=== PATIENT | male | born 1965 | race Caucasian/White ===

== ENCOUNTER 2018-01-24 19:04 | Inpatient (IN) | payer MEDICAID, OTHER ==
--- NOTE | 2018-01-24 19:38 | EDPHY ---
General - History Smoking Status: Never smoked Time Seen by Provider: 01/24/18 19:29 Narrative: CHIEF COMPLAINT: Suicidal, depressed HISTORY OF PRESENT ILLNESS: Patient presents by private vehicle with complaints of depression and feeling suicidal. He describes history of depression with recent admission to [facility], discharged home 10 days ago on Effexor. He states that the affected has made the symptoms worse over the past few days. He complains of increasing thoughts of self-harm with plans of overdosing on his current medications. He denies having access to weapons or thoughts of self inflicted gunshot wounds or stab wounds. He says that he has no current psychiatric support here. He recently moved from [place] for work. He denies any substance abuse. No other associated complaints or modifying factors PSYCHIATRIC DIAGNOSES: Depression, anxiety PRIOR PSYCHIATRIC EVALUATIONS: [facility] discharged 10 days ago M1/DETAINER: Detained by me at 7:30 p.m. Today REVIEW OF SYSTEMS: Ten systems reviewed and are negative unless otherwise noted in the HPI EXAMINATION General Appearance: Alert, no distress Head: normocephalic, atraumatic Eyes: Pupils equal and round, no conjunctival pallor or injection ENT, Mouth: Mucous membranes moist Neck: Normal inspection, supple, non-tender Respiratory: Lungs are clear to auscultation Cardiovascular: Regular rate and rhythm Gastrointestinal: Abdomen is soft and nontender Back: non-tender, no bony abnormalities Neurological: GCS 15. A&O, nonfocal, normal gait Skin: Warm and dry, no rash Extremities: Nontender, no pedal edema Psychiatric: Depressed mood and flat affect. Admits to suicidal ideation with plans of overdosing on his medications. DIFFERENTIAL DIAGNOSES: Including but not limited to depression, anxiety, anergy MDM: 7:30 p.m. Increasing depression with reports of suicidal ideation over the past weeks. He was recently treated at [facility] for this, discharged home 10 days ago. He states that his Effexor is not working and symptoms are worse. He does express intent to harm self discharge home and cannot contract for safety. I placed him on a detainer and we will proceed with medical clearance and evaluation. 8:30 p.m. Patient has been cleared for evaluation. 9:45 p.m. Patient currently be evaluated 10:20 p.m. Notified by RN accepted to [address] [place] [address] for inpatient care[address] Accepting physician Dr. Mabry. EMTALA form will be completed. He is asking for his nighttime medications, which I have ordered. 10:30 p.m. EMTALA completed by Dr. Law. He is awaiting transport by EMS. SUPERVISION: Patient was independently examined, but I discussed the case with my secondary supervising physician Dr. Law (Binh Tao) The patient was evaluated and managed by the physician visitor information assistant. I have reviewed this chart and I agree with the findings and plan of care as documented , as indicated by my signature. I am the secondary supervising physician. ( Marva Law) - Objective Vital Signs: Initial Vital Signs Temperature (C) 37.5 C 01/24/18 19:11 Heart Rate 77 01/24/18 19:11 Respiratory Rate 18 01/24/18 19:11 Blood Pressure 133/89 H 01/24/18 19:11 O2 Sat (%) 97 01/24/18 19:11 O2 Delivery Mode Room Air Allergies/Adverse Reactions: No Known Allergies Allergy (Unverified 01/24/18 19:15) Home Medications: Medication Instructions Recorded Aspirin [Aspirin 325 mg (*)] 325 mg PO DAILY 01/24/18 Clopidogrel Bisulfate [Plavix (*)] 75 mg PO DAILY 01/24/18 Isosorbide Mononitrate [Imdur 30 60 mg PO DAILY 01/24/18 mg (*)] Metoprolol Succinate Xr [Toprol Xl 25 mg PO DAILY 01/24/18 25 mg (*)] Nitroglycerin [Nitrostat 0.4 mg 0.4 mg SL Q5M PRN 01/24/18 (*)] oxyCODONE HCL [Oxycontin] 10 mg PO TID 01/24/18 Atorvastatin Calcium [Lipitor 20 20 mg PO HS 01/25/18 mg (*)] Multivitamins [Multivitamin (*)] 1 each PO DAILY 01/25/18 Ranolazine [RANEXA 500mg (RX)] 500 mg PO BID 01/25/18 Laboratory Results: Laboratory Results 01/24/18 19:30 01/24/18 19:30 Medications Given: Aspirin Buffered (Aspirin Ec) 325 mg PO DAILY [facility] Stop: 07/24/18 08:59 Last Admin: 01/25/18 09:13 Dose: 325 mg Clopidogrel Bisulfate (Plavix) 75 mg PO DAILY [facility] Stop: 07/24/18 08:59 Last Admin: 01/25/18 09:13 Dose: 75 mg Oxycodone HCl (Oxycontin) 10 mg PO TID [facility] Stop: 02/04/18 08:59 Last Admin: 01/25/18 09:13 Dose: 10 mg Discontinued Medications Atorvastatin Calcium (Lipitor) 20 mg PO EDNOW ONE Stop: 01/24/18 22:19 Last Admin: 01/24/18 22:59 Dose: 20 mg Lorazepam (Ativan) 0.5 - 1 mg PO Q6HRS PRN PRN Reason: Anxiety, Able to Take PO Stop: 07/24/18 01:06 Last Admin: 01/25/18 02:07 Dose: 1 mg Oxycodone HCl (Oxycontin) 40 mg PO Q12H [facility] Stop: 02/04/18 00:59 Last Admin: 01/25/18 02:16 Dose: Not Given Oxycodone HCl (Oxycontin) 10 mg PO ONCE ONE Stop: 01/25/18 01:37 Last Admin: 01/25/18 02:07 Dose: 10 mg Oxycodone/Acetaminophen (Percocet 5/325) 1 tab PO EDNOW ONE Stop: 01/24/18 22:21 Last Admin: 01/24/18 22:59 Dose: 1 tab Ranolazine (Ranexa) 500 mg PO EDNOW ONE Stop: 01/24/18 22:31 Last Admin: 01/24/18 22:59 Dose: 500 mg Venlafaxine HCl (Effexor Xr) 150 mg PO DAILY [facility] Stop: 07/24/18 08:59 Last Admin: 01/25/18 09:15 Dose: 150 mg Departure - Departure Disposition: [facility] IP Clinical Impression: Suicidal ideation, Severe major depression Condition: Fair
[2018-01-24 20:09] LABS: PLATELET COUNT 208 10^3/uL (150-400)
[2018-01-24] MEDS ORDERED: ATORVASTATIN CALCIUM 20 MG TAB PO ONE (22:18)
[2018-01-24] MEDS ORDERED: OXYCODONE/APAP 5/325 TAB PO ONE (22:20)
[2018-01-24] MEDS ORDERED: RANOLAZINE 500 MG TAB.ER PO ONE (22:30)
[2018-01-24] MEDS ORDERED: RANOLAZINE 500 MG TAB.ER PO SCH (22:30)
--- NOTE | 2018-01-24 23:01 | ASMTTLCEVL ---
TLC Evaluation - Basic Information Evaluation Start Date and 01/24/2018 09:00 PM Time Hospital Status Answers: M1 Hold 72-hr M1 Hold Start Date 01/24/2018 10:20 AM and Time Patient statement Notes: I got a hx of depression and I have been feeling suicidal. Narrative Notes: Pt is a 52 year old male who recently moved here from [place] for work. Pt was discharged from [facility] 10 days ago on Effexor and he reports his depression symptoms have gotten worse. Pt stated he was on Wellbutrin before but had to be taken off due to heart problems. Pt stated Wellbutrin did work well for him. Pt stated he has felt suicidal for the past few days and today was real bad. Pt reported he has a plan to overdose on his medications. Pt reports feeling hopeless and stated, Im so sorry to come back here but I just dont feel safe. Im tired of feeling depressed. Every night I go to sleep and hope I dont wake up. Diagnosis History Notes: Pt reports a hx of depression that started after his heart surgery in 2006. Pt stated prior to 2006, he never had depression. Prior suicide attempts Notes: Pt reported 2 prior suicide attempts both by overdose on medications in 2009 and in 2011. Prior hospitalizations Notes: Pt reports 3 prior hospitalizations, 2 in [place] and recently at [facility]. Treatment Responses Notes: Pt reported he felt his hospitalizations in [place] were helpful. History of violence Notes: Pt denied wanting to harm others. Therapist: Pt has not established outpatient providers here yet. Psychiatrist: Pt has not established outpatient providers here yet. Medications (name, dosage, route, freq uency) Notes: Renexa, Lipitor, Effexor 150 mg; Percocet 10 mg Allergies/Reaction Notes: NKa Sleep Notes: Pt reports his sleep is poor. Appetite Notes: Pt reports his sleep is poor. Medical/Surgical history Notes: Pt reports he has High cholesterol, and afib. Substance use history (frequency, intensity, his tory, duration) Notes: Pt denied and etoh use. Pt reports he uses marijuana occasionally. Utox was positive or THC. Bal was.0 Family composition Notes: Pt reports his parents are . He has one sister in [place] who he says he has not spoken to in a long time. Family psychiatric/substance abuse history Notes: Pt denied any family psychiatric/substance use hx. Developmental history Notes: Pt stated he was born and raised in [place] and reported having a good childhood. Pt denied ADD/ADHD dx hx. Abuse concerns Answers: None Marital status/children Notes: Pt is , no children. Living situation Notes: Pt states he is living in [place]. Sexual history/orientation Notes: Heterosexual Peer support/family strengths Notes: Pt reported he just moved here and has a limited support system. Education level/history Notes: Pt reported he graduated from high school. Work history Notes: Pt reported he works in [employer]. Notes: Pt reported he served in [employer] from [id number]. Legal Notes: Pt denied any legal problems. Cheondoism/Spiritual Notes: None reported. Leisure Notes: Pt stated he used to like reading but has not enjoyed doing that for a while. Collateral Notes: None Patient's strengths Answers: Honest (Please select at least TWO strengths): Willingness TLC Evaluation - Mental Status Exam Appearance: Answers: Appropriate Eye Contact: Answers: Intermittent Mood: Answers: Sad Affect: Answers: Calm Flat Silly Tearful Behavior: Answers: Cooperative Speech: Answers: Relevant Logical Clear Thought Process: Answers: Organized Oriented Alert Insight: Answers: Good Judgement: Answers: Good Depression Answers: Difficulty Concentrating Signs/Symptoms: Diminished Interest Diminished Pleasure Flat Affect Hopelessness Sad Mood Hallucinations: Answers: None Pt reported to be making Answers: Yes suicidal/self-injuring threats? Pt reported to have Answers: No aggression/assault ideation/behavior? Pt reported to be making Answers: No aggression/assault threats? Pt exhibits inability to Answers: No care for self/grave disability? Ideation/behavior is Answers: Yes chronic? Patient has a specific Answers: Yes plan? Pt has access to means to Answers: Yes execute the plan? Ideation involves Answers: Yes serious/lethal intent? Ideation has Answers: No delusional/hallucinatory content? History of Answers: Yes suicidal/self-injuring ideation, behavior, or threats? History of Answers: No aggressive/assaultive ideation, behavior, or threats? History of serious Answers: No physical harm to self/others while in treatment setting? TLC Evaluation - Suicide/Homicide Risk Suicide Risk Factors: Answers: < 20 or > 40 Years of Age Flat Affect Hopelessness Inadequate Social Support Major Depression Prior Suicide Attempt(s) Homicide/violence risk Answers: None factors: Current Suicidal Answers: Yes Ideation? Current Suicide Ideation Pt reports having SI every day for past few days Frequency: with plan. Current Suicidal Ideation Answers: Yes in the Past 48 Hours? Current Suicidal Ideation Answers: Yes in the Past Month? Current Suicidal Answers: No Ideation, Worst Ever? Suicide Internal Answers: Absence of Psychosis Protective Factors: Suicide External Answers: None Protective Factors: Ranking of patient's Answers: Severe suicidal risk: Ranking of patient's Answers: Low homicidal risk: TLC Evaluation - Wrap-up AXIS I Diagnosis (include DSM-V and ICD-10 codes), must also be entered in [employer], which is the source of truth. Notes: Major Depressive Disorder, recurrent, severe 296.33 (F33.2) In consultation with [facility] ED physician, Marva Law MD and on-call psychiatrist, Loan Mabry MD, both concurred that pt appears to meet 27-65 criteria requiring psychiatric hospitalization as pt appears to be at risk of harm to self due to a mental illness condition. Pt was given the 3[facility] prohibited belongings list while in the ED. Evaluation End Date and 01/24/2018 11:00 PM Time (HH:MIGUEL): Date Signed: 01/24/2018 11:00 PM Electronically Signed By:Radha Pacheco
--- NOTE | 2018-01-24 23:01 | ASMTTCLDSP ---
TLC Discharge Disposition Disposition: Answers: Admit Discharge Concerns/Recommendations: Notes: In consultation with [facility] ED physician, Marva Law MD and on-call psychiatrist, Loan Mabry MD, both concurred that pt appears to meet 27-65 criteria requiring psychiatric hospitalization as pt appears to be at risk of harm to self due to a mental illness condition. Pt was given the 3N prohibited belongings list while in the ED. Was patient given the Answers: Yes Inpatient Behavioral Health Prohibited Belongings List while in the ED? For inpatient Loan Mabry MD admission, the following psychiatrist agreed to accept patient for admission to Behavioral Health ([facility]): Date Signed: 01/24/2018 11:01 PM Electronically Signed By:Radha Pacheco
[2018-01-25] MEDS ORDERED: OLANZapine DISINTEGR 5 MG TAB PO PRN (01:07)
[2018-01-25] MEDS ORDERED: MAG HYDROX/AL HYDROX/SIMETH 30 ML UDCUP PO PRN (01:07)
[2018-01-25] MEDS ORDERED: LORazepam 0.5 MG TAB PO PRN (01:07)
[2018-01-25] MEDS ORDERED: MAGNESIUM HYDROXIDE 30 ML UDCUP PO PRN (01:07)
[2018-01-25] MEDS ORDERED: ACETAMINOPHEN 325 MG TAB PO PRN (01:07)
[2018-01-25] MEDS ORDERED: NICOTINE POLACRILEX 2 MG GUM B PRN (01:07)
[2018-01-25] MEDS ORDERED: NITROGLYCERIN 0.4 MG BTL SL PRN (01:28)
--- NOTE | 2018-01-25 08:49 | ASMTBHMTP ---
Master Treatment Plan Master Treatment Plan Answers: Depressed Mood with for: Suicidal Ideation Date: 01/24/2018 Diagnosis on Admission: Major Depressive Disorder, Recurrent, Severe 296.33 (33.20) Expected length of stay: 3-5 days Reason for admission: Notes: Per Report: Pt is a 52 year old male who recently moved here from [place] for work. Pt was discharged from [facility] 10 days ago on Effexor and he reports his depression symptoms have gotten worse. Pt stated he was on Wellbutrin before but had to be taken off due to heart problems. Pt stated Wellbutrin did work well for him. Pt stated he has felt suicidal for the past few days and today was real bad. Pt reported he has a plan to overdose on his medications. Pt reports feeling hopeless and stated, Im so sorry to come back here but I just dont feel safe. Im tired of feeling depressed. Every night I go to sleep and hope I dont wake up. Patient's stated presenting problems: Notes: "I am here for Depression and Suicidal Ideation. Patient's goals for treatment: Notes: "to get stable, and maybe try ECT [place]." Patient's strengths: Notes: "I can't think of any." Identify supports outside of hospital: Notes: Not really Discharge criteria: Notes: Suicidal Ideaiton will resolve and patient will have a plan to safely manage recurrent suicidal ideation. Initial disposition plan/considerations: Notes: To return to work for a bit and move back to [place] Master Treatment Plan Required Signatures Psychiatrist signature: Answers: JACQUELYN Baxter: RN on-shift signature: Answers: RN: Patient signature: Answers: Patient: Date Signed: 01/25/2018 08:48 AM Electronically Signed By:Shant Shha
[2018-01-25] MEDS ORDERED: VENLAFAXINE XR 150 MG CAP PO SCH (09:00)
[2018-01-25] MEDS: ASPIRIN EC 325 MG TAB PO SCH (09:13)
[2018-01-25] MEDS: CLOPIDOGREL BISULFATE 75 MG TAB PO SCH (09:13)
--- NOTE | 2018-01-25 13:29 | BCON ---
INTERNAL MEDICINE CONSULTATION DATE OF CONSULTATION: 01/25/2018 REFERRING PHYSICIAN: Loan Mabry MD REASON FOR REFERRAL: Medical clearance for inpatient behavioral health stay. HISTORY OF PRESENT ILLNESS: This patient came to the emergency department yesterday complaining of depression and feeling suicidal. He did not feel that he could be safe at home. He was evaluated by the mental health team and admitted for further psychiatric care. He is currently without any acute medical complaints. PAST MEDICAL HISTORY: 1. Coronary artery disease. 2. Chronic angina. 3. Osteomyelitis of the right foot. 4. Hypertension. 5. Dyslipidemia. 6. Chronic anemia. 7. Depression. PAST SURGICAL HISTORY: He has had multiple coronary artery stentings and angioplasties. He had coronary artery bypass graft surgery in 2008. MEDICATIONS: Prior to admission: 1. Ranolazine 500 mg p.o. b.i.d. 2. Multivitamin daily. 3. Atorvastatin 20 mg p.o. q.h.s. 4. Nitroglycerin 0.4 mg sublingual q.5 minutes p.r.n. 5. Metoprolol succinate XR 25 mg p.o. daily. 6. Isosorbide mononitrate 60 mg p.o. daily. 7. Aspirin 325 mg p.o. daily. 8. Oxycodone 10 mg p.o. t.i.d. 9. Clopidogrel 75 mg p.o. daily. ALLERGIES: There are no known drug allergies. SOCIAL HISTORY: He is . He moved to [place] for a job. He is a nonsmoker and nondrinker. He reports he is intending to return to [place]. FAMILY HISTORY: Noncontributory. REVIEW OF SYSTEMS: He denies weight change, fevers, chills, sweats, cough, dyspnea, chest pain, palpitations, nausea, vomiting, constipation, diarrhea, and otherwise, a 10-point review of systems is negative. PHYSICAL EXAM: VITAL SIGNS: Blood pressure is 123/73. Heart rate is 67. Respiratory rate is 16. Oxygen saturation is 95% on room air. Temperature is 37 degrees centigrade. His weight is 92.9 kg, for a body mass index of 27.8. GENERAL: This is an overweight man, appears older than his chronologic age, cooperative, and in no acute distress. HEENT: Extraocular movements are intact. Pupils are equal, round, reactive to light. Mucous membranes are moist. Dentition is in good condition. NECK: Supple. HEART: There is a regular rate and rhythm, with no murmurs, rubs, or gallops. Heart sounds are mildly distant. LUNGS: Clear to auscultation bilaterally. ABDOMEN: Benign. EXTREMITIES: There is no cyanosis, clubbing, or edema. Radial and dorsalis pedis pulses are 2+ bilaterally. NEUROLOGIC: He is alert and oriented x3. Cranial nerves 2-12 are grossly intact. There is no focal weakness. Sensation is intact to light touch. Gait is somewhat wide-based, with pes planus and slow , with a step through pattern and reduced arm swing. LABORATORY STUDIES: From yesterday, CBC revealed mild anemia with hemoglobin of 11.7 and hematocrit of 35.2. He had a normal MCV. Serum chemistry revealed normal renal function and electrolytes. Hemoglobin A1c was normal at 5.6. Lipid panel reflected excellent control of dyslipidemia, with a total cholesterol of 104, LDL of 48, and an HDL of 35. TSH was normal at 0.689. Toxicology screen in the serum was negative for ethyl alcohol and in the urine was non-negative for marijuana. ASSESSMENT/RECOMMENDATIONS: 1. Mental health issues pending further evaluation and management per Psychiatry and the mental health team. 2. Anemia. He reports this is chronic. It is mild. There is no indication for any further evaluation at this time. 3. Coronary artery disease. Has been treated with angioplasty and multiple stenting, as well as a bypass. 4. Chronic angina, on appropriate medications to control, including ranolazine , isosorbide mononitrate, and metoprolol. 5. Hypertension, is well controlled. 6. Dyslipidemia, is well controlled. 7. Chronic foot pain. He reports that he will get a bone graft due to bony erosion that happened because of his osteomyelitis in the past, but first he must complete his year of clopidogrel, which will be completed in several months since his prior angioplasty. I see no medical contraindications to this patient's continued stay on the inpatient behavioral health unit, or to any psychiatric medications or procedures. Thank you very much for including me in the care of this patient and please do not hesitate to contact me or the hospitalist service should there be need for further medical evaluation. /[id number]/MODL MTDD
--- NOTE | 2018-01-25 14:34 | BAPA ---
DATE OF SERVICE: 01/25/2018 CHIEF COMPLAINT: "Can't get it straightened out, depression, don't want to live." HISTORY OF PRESENT ILLNESS: From the ED note dated 01/24/18, patient presented to the ED by private vehicle with complaints of depression and feeling suicidal. Patient describes history of depression with recent admission at [facility], discharged home 10 days ago on Effexor. Patient reported increasing thoughts of self-harm with plans of overdosing on his current medications. Patient was admitted involuntarily on an M1 hold due to being a danger to himself and is hospitalized for safety, crisis stabilization, and medication evaluation. Patient describes to this MANAGER [employer]PPORT SERVICES current circumstances that led to this hospitalization as a long history of depression, reports depression started after he had open-heart surgery in 2006, and patient reports worsening depression over the last few months. Patient states to this [employer] current alcohol and/or substance abuse that contributed to current hospitalization as none. Patient describes to this [employer]NA[employer] current psychiatric symptoms as depression symptoms including depressed mood most of the day nearly every day, diminished interest or pleasure in almost all activities that he typically enjoys, poor appetite, poor sleep, reporting sometimes difficulty falling asleep, sometimes sleeping too much, fatigue, low energy nearly every day, feelings of worthlessness and excessive guilt, inability to concentrate nearly every day, indecisiveness nearly every day, and suicidal ideation. Patient describes to this [employer] abuse history as none. 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 Patient reports he does attend to day-to-day responsibilities and chores around the hotel room that he is staying in. Patient reports working without difficulty. Patient reports he has not been socializing much. Reports he does not get along with his family. He is not close to his sister. Patient reports hobbies as reading and watching movies, and patient states he is currently not satisfied with his . Patient reports current suicidal ideation with a plan to overdose on medications. Patient reports no protective factors or reasons to live. Patient is unable to describe any future goals or plans. Patient reports his main support network as a cousin. Patient denies current homicidal ideation and denies current self-injurious ideation. Patient reports his medications are currently managed by his primary care provider, and states he is currently not established with a therapist. PAST PSYCHIATRIC HISTORY: The patient describes to this [employer] the following psychiatric history: Patient reports past diagnosis of depression and reports past psychotropic medication trials as Prozac, Zoloft, Cymbalta, Lexapro, Wellbutrin, trazodone, Remeron, Seroquel, and Abilify. Patient reports he currently sees his primary care provider for his medications. Patient describes a history of inpatient psychiatric hospitalizations as was recently discharged from [facility] on Tuesday and reports he "left too soon." Patient reports he was also at [facility] for a couple days about 2 weeks ago. Patient denies history of withdrawal from drugs or alcohol. Patient reports a history of 3 suicide attempts, reports an attempt in 2008 by overdose on Seroquel and also by overdose in 2011 and 2014. Patient denies history of self- injurious behavior. ALLERGIES: No known allergies. CURRENT MEDICATIONS: At time of admission, patient was taking Effexor XR 150 mg p.o. daily. Patient was prescribed oxycodone 10 mg p.o. t.i.d. for a taper, nitroglycerin 0.4 mg sl q.5 m p.r.n., Plavix 75 mg p.o. daily, Lipitor 20 mg p.o. q.h.s., aspirin EC 325 mg p.o. daily. PAST MEDICAL HISTORY: The patient describes to this [employer]NAGER [employer] the following: Patient reports no neurological history. Reports major illness as heart condition and reports hospitalizations for heart surgeries. SOCIAL HISTORY: The patient describes to this MANAGER [employer] the following social history: Patient reports he was born in [place] and raised the majority of his life in [place] by his grandmother. Patient reports he currently lives in an extended stay hotel in [place] for work. Patient reports he met all his developmental milestones, reports no learning delays or difficulties. Patient describes his sexual orientation as heterosexual. States he is currently not in a relationship,. Has been twice and twice. The patient reports he has no children. Describes his occupation as in the [employer] business. Reports highest level of education is high school. Reports he was in the and served in the [employer] from 1982 to 1987. Patient describes his zoroastrianism or spiritual practice as Jewish. Reports no history of legal charges. SUBSTANCE USE HISTORY: Patient reports he does not drink alcohol. Uses marijuana 3-4 times per week, and denies all other substance use history. SUBSTANCE ABUSE BRIEF INTERVENTION: Brief intervention regarding the risks of cannabis abuse is provided to patient with goal to reduce the risk of harm that could result from the continued use of cannabis, with the general aim to investigate the problem, raise awareness of problem, develop a solution with the patient, recommend a specific change or activity, and motivate the patient toward change. Assess substance abuse behavior and give supportive advice about harm reduction, recommend a reduction in hazardous/at-risk consumption patterns, and facilitate referrals for additional specialized treatment with lawn caretaker. Intermediate goal is for the patient to quit and engage in substance abuse treatment. Intervention focus on intermediate goals to allow for more immediate success in the treatment process to keep the patient motivated. Review following with patient: Cannabis use risks: Short-term use: impaired short-term memory, impaired motor coordination, altered judgement, in high doses paranoia and psychosis. Long-term use addiction, diminished life satisfaction and achievement, symptoms of chronic bronchitis, and increased risk of chronic psychosis disorders if predisposition to such disorders. In withdrawal anger, aggression irritability, anxiety and nervousness, decreased appetite or weight loss, restlessness, and sleep difficulties with strange dreams. FAMILY PSYCHIATRIC HISTORY: The patient describes to this MANAGER [employer] the following family psychiatric history: Patient reports no family history of mental illness. No family history of suicide or suicide attempts. The patient describes family history of substance use as his father abused alcohol. ADMISSION LABS AND STUDIES: CBC from 01/24/18, within normal limits except red blood cells were low at 4.10, hemoglobin was low at 11.7, hematocrit was low at 35.2, neutrophils were elevated at 75.9, lymphocytes were low at 14.5, basophils were low at 0.2, absolute lymphocytes were low at 0.83, and absolute basophils were low at 0.01. Chemistry: BNP from 01/24/18, within normal limits. Hemoglobin A1c from 01/25/18, within normal limits. Fasting lipid panel from 01/25/18, within normal limits except cholesterol was low at 104, LDL cholesterol calculated was low at 48, non-HDL cholesterol was low at 69, and HDL cholesterol was low at 35. TSH from 01/25/18, was within normal limits. Toxicology screen from 01/24/18, was negative for THC, negative for all other substances tested, and negative for ethyl alcohol. MENTAL STATUS EXAM: The patient is a well-nourished male looking stated chronological age. Attire is appropriate. Dress is casual. Grooming status is appropriate. Ambulation is independent. Gait is normal and coordinated. Posture is normal and relaxed. Eye contact is appropriate and adequate. Motor activity is appropriate with purposeful, organized, coordinated movements with no involuntary movements noted. Attitude is cooperative and friendly. Patient appears attentive and relates well to this interviewer. Language production is spontaneous. Rate is fluent. Latency of response is adequate with sad tone, normal volume and amount is appropriate. Articulation is clear. Patient reports mood as depressed with constricted, flat and congruent affect. Patient' s thought process is linear and logical with no loose associations, tangential thought, thought blocking, concrete thinking, or any other signs of formal thought disorder. The patient does report suicidal thoughts with a plan to overdose. Patient denies homicidal thoughts, ideas, or plans. Patient denies auditory or visual hallucinations. Patient denies delusions. Patient does not appear to be attending to internal stimuli. Patient is oriented to person, place, time, and situation. The patient's attention and concentration are adequate. The patient's insight and judgment are poor. There is no evidence of gross cognitive dysfunction at any point during the interview, and no evidence of apparent dysfunction in recent or remote memory noted. DIAGNOSES: 1. Based on the patient's history and current presentation, his diagnosis is major depressive disorder, recurrent, severe. 2. Cannabis use disorder, mild. 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 Patient requires continued inpatient care because of current depression and current suicidal ideation with plan to overdose. Patient presents with problems of increased depression that have steadily been increasing over the past several months. Patient's life has been affected by these problems, including suicidal ideation with plan. The onset and exacerbation of symptoms at this time are unknown. Patient reports a long history of depression with numerous trials of antidepressants with little to no benefit for his depression symptoms. Patient is at a high suicide safety risk due to current depression and current suicidal ideation with plan to overdose. Protective factors while hospitalized include ongoing safety checks, active involvement in treatment, and support from our treatment team. Patient could benefit from inpatient hospitalization for safety , crisis stabilization, and medication evaluation. PLAN: (1) Psychotropic medications: After reviewing options, risks and benefits, patient agrees to taper with objective to discontinue Effexor. Taper will begin by lowering dose from 150 mg to 75 mg p.o. daily and this is Effexor XR. Patient agrees to a trial of Wellbutrin with starting dose of Wellbutrin XL 150 mg p.o. daily to start on , 01/26/18. Patient reports he has been on Wellbutrin in the past with good benefit and reports he tolerated this medication in the past. No other medication changes at this time as more time is needed to determine ongoing tolerability and efficacy. Plan is to continue to observe patient for response and side effects from medications, and ongoing monitoring and evaluation. (2) Review with patient informed consent and recommendations for psychotropic medication treatment listed below (3) Labs: no additional labs at this time (4) Therapy: continue milieu and group therapy (5) Further investigation including gathering information from patients relatives and review of past case records to inform treatment plan. (6) Safety/Wellness plan and follow-up outpatient appointments to be established prior to discharge. Next steps are for patient to meet with customer care team coach to plan a safe discharge plan and establish outpatient services for ongoing treatment. (7) Confer with inpatient treatment team regarding treatment plan. (8) Legal status: M1 hold (9) Consider discharge on Tuesday if patient is in stable condition, safe, and has a safe discharge plan. (10) Substance abuse intervention: cannabis ESTIMATED LENGTH OF STAY: 3-5 days PSYCHOTROPIC MEDICATION TREATMENT INFORMED CONSENT and RECOMMENDATIONS: Review nature of condition, diagnosis, and prognosis. Review nature and purpose of psychotropic medication treatment. Review type of psychotropic medications being ordered. Review risk and benefits of psychotropic medication treatment. Review probable length of time will need to take medications. Review risk and benefits of not undergoing psychotropic medication treatment. Review alternative treatments to psychotropic medications. Review psychotropic medications contraindications, drug-drug interactions, side effects, and importance of reporting any side effects to a psychiatric provider or nurse during inpatient hospitalization, and upon discharge to patients psychiatric outpatient provider, primary care provider, or other health health care / medical job titles. Review importance of asking a nurse, psychiatric provider, or primary care provider any questions or problems concerning the psychotropic medications. Verify patient understands the information that has been provided, and understands, accepts, and agrees to psychotropic medications. Review patients safety plan and importance of patient to communicate to staff while hospitalized if patient is ever a danger to self/others, or unable to care for self, and upon discharge, the importance for patient to contact [facility] or [facility], or go to the nearest emergency room, if patient is ever a danger to self/others, or unable to care for self. Recommend that upon discharge patient establish medication management treatment with a psychiatric provider, establishes routine therapy appointments, and follow-up with primary care provider. Verify patient understands and agrees to these recommendations. /[id number]/MODL MTDD
--- NOTE | 2018-01-25 16:13 | PDMN ---
Medical Necessity Medical necessity: Pt meets IP criteria per & SHUN B-[id number]; est los >2 mn for eval/tx of major depressive disorder; pt on M1 hold due to risk of harm to self; admit for further monitoring, safety, crisis stabilization & med management; per H&P & order 01/25/18
[2018-01-25] MEDS: ATORVASTATIN CALCIUM 20 MG TAB PO SCH (21:28)
[2018-01-26] MEDS: buPROPion XL 150 MG TAB PO SCH (08:15)
[2018-01-26] MEDS: ASPIRIN EC 325 MG TAB PO SCH (08:15)
[2018-01-26] MEDS: CLOPIDOGREL BISULFATE 75 MG TAB PO SCH (08:16)
[2018-01-26] MEDS: VENLAFAXINE XR 75 MG CAP PO SCH (08:17)
--- NOTE | 2018-01-26 08:22 | SOAPPROG ---
SOAP Progress Note Assessment/Plan: Assessment: Major Depressive Disorder, Severe. Cannabis Use Disorder, mild. No improvement noted. (see subjective/objective note). Patient is not safe to discharge at this time as patient continues to express and exhibit depression symptoms, and reports plan to overdose on Plavix medications. Patient requires continued inpatient care because of current depression and suicidal ideation with plan, and requires inpatient level of care to stabilize in order to no longer be a danger to himself. Patient could benefit from continued inpatient hospitalization for crisis stabilization, safety, and medication evaluation. Patient could benefit from observation for efficacy and toleration of trial of antidepressant. Plan: (1) Psychotropic medications: After reviewing options, risks, and benefits patient agrees to continue current medications. No medication changes at this time as more time is needed to determine ongoing tolerability and efficacy. Plan is to continue to observe patient for response and side effects from medications, and ongoing monitoring and evaluation. Consider tapering oxycodone to discontinue. (2) Review with patient informed consent and recommendations for psychotropic medication treatment listed below (3) Labs: no additional labs at this time (4) Therapy: continue milieu and group therapy (5) Further investigation including gathering information from patients relatives and review of past case records to inform treatment plan. (6) Safety/Wellness plan and follow-up outpatient appointments to be established prior to discharge. Next steps are for patient to meet with urgent care physician assistant to plan a safe discharge plan and establish outpatient services for ongoing treatment. (7) Confer with inpatient treatment team regarding treatment plan. (8) Legal status: M1, to sign-in voluntarily when M1 expires (9) Consider discharge next week if patient is in stable condition, safe, and has a safe discharge plan. (10) Substance abuse intervention: cannabis PSYCHOTROPIC MEDICATION TREATMENT INFORMED CONSENT and RECOMMENDATIONS: Review nature of condition, diagnosis, and prognosis. Review nature and purpose of psychotropic medication treatment. Review type of psychotropic medications being ordered. Review risk and benefits of psychotropic medication treatment. Review probable length of time patient will need to take medications. Review risk and benefits of not undergoing psychotropic medication treatment. Review alternative treatments to psychotropic medications. Review psychotropic medications contraindications, drug-drug interactions, side effects, and importance of reporting any side effects to a psychiatric provider or nurse during inpatient hospitalization, and upon discharge to patients psychiatric outpatient provider, primary care provider, or other health progressive care nurse. Review importance of asking a nurse, psychiatric provider, or primary care provider any questions or problems concerning the psychotropic medications. Verify patient understands the information that has been provided, and understands, accepts, and agrees to psychotropic medications. Review patients safety plan and importance of patient to report to staff while hospitalized if patient is ever a danger to self/others, or unable to care for self, and upon discharge, the importance for patient to contact [facility] or [facility], or go to the nearest emergency room, if patient is ever a danger to self/others, or unable to care for self. Recommend that upon discharge patient establish medication management treatment with a psychiatric provider, establishes routine therapy appointments, and follow-up with primary care provider. Verify patient understands and agrees to these recommendations. 01/26/18 08:21 Subjective: Following up with patient for evaluation of depression, anxiety, and safety. Patient reports, "No better, still feeling severely depressed, and having thoughts of suicide. My plan is to overdose on my Plavix." Patient expresses the following psychiatric symptoms severe depression. Patient reports taking medications as prescribed, and describes response to medications as poor. Patient does not report undesirable side effects from the medications, and agrees to continue current medications. Patient reports appetite as good, and reports eating all meals. Patient describes getting 8 hours of sleep. Patient expresses willingness to taper and discontinue Oxycodone. Patient agrees to continue Effexor XR taper and trial of Wellbutrin XL 150 mg po QD. Objective: Vital Signs Temp Pulse Resp BP Pulse Ox 36.9 C 67 16 134/79 H 96 01/26/18 00:30 01/26/18 00:30 01/26/18 00:30 01/26/18 00:30 01/26/18 00:30 NURSING REPORT: Consulted with nursing for update on patients progress in treatment. Nurses report patient is engaged in treatment, is attending groups, slept 9 hours, expresses the following psychiatric symptoms: severe depression, exhibits the following psychiatric symptoms: flat affect, depressed; is eating all meals, is agreeable to medications and taking as prescribed with no report of side effects, with no s/s of EPS/akathisia, and denies SI/HI, denies A/V hallucinations, and denies delusions. MSE: The patient presents casually dressed and with good hygiene, and looks stated age. Patient is sitting, posture is upright, and position is relaxed. Patient appears awake, alert, and responds appropriately and reasonably during interview. Patient is engaged, relates well to interviewer, and emotional facial expression is appropriate to situation and changes appropriately with topic. Patient is cooperative, makes comfortable eye contact, and movements are voluntary, deliberate, coordinated, and smooth and even with no inappropriate movements. Patient makes laryngeal sounds effortlessly and shares conversation appropriately; pace of conversation is appropriate, and stream of talking is fluent; articulation is clear and understandable; word choice is effortless and appropriate for education level; completes sentences, occasionally pausing to think; rate and volume are appropriate for interview and setting. Patient reports mood as severely depressed. Patients affect is flat, congruent with mood, and appropriate to speech and circumstances. Patient has linear and logical thinking, with no loose associations, tangential thought, thought blocking, concrete thinking, or any other signs of formal thought disorder. Patient reports suicidal ideation with plan to overdose, and denies homicidal ideation, and denies hallucinations and delusions. Patient appears to be a poor historian with poor judgement and poor insight into current condition. Patient has no apparent dysfunction in recent or remote memory noted, and no evidence of gross cognitive dysfunction noted at any point during the interview. SUBSTANCE ABUSE BRIEF INTERVENTION: Brief intervention regarding the risks of cannabis abuse is provided to patient with goal to reduce the risk of harm that could result from the continued use of cannabis, with the general aim to investigate the problem, raise awareness of problem, develop a solution with the patient, recommend a specific change or activity, and motivate the patient toward change. Assess substance abuse behavior and give supportive advice about harm reduction, recommend a reduction in hazardous/at-risk consumption patterns, and facilitate referrals for additional specialized treatment with date night caregiver. Intermediate goal is for the patient to quit and engage in substance abuse treatment. Intervention focus on intermediate goals to allow for more immediate success in the treatment process to keep the patient motivated. Review following with patient: Cannabis use risks: Short-term use: impaired short-term memory, impaired motor coordination, altered judgement, in high doses paranoia and psychosis. Long-term use addiction, diminished life satisfaction and achievement, symptoms of chronic bronchitis, and increased risk of chronic psychosis disorders if predisposition to such disorders. In withdrawal anger, aggression irritability, anxiety and nervousness, decreased appetite or weight loss, restlessness, and sleep difficulties with strange dreams. - Time Spent With Patient Time Spent With Patient: 15 minutes, met with patient individually. - Pending Discharge Pending Discharge Within 24 Hours: No Pending Discharge Within 48 Hours: No ICD10 Worksheet Patient Problems: Problems Problem Status Onset Severe major depression Acute Suicidal ideation Acute
[2018-01-26] MEDS ORDERED: LORazepam 1 MG TAB PO PRN (08:50)
[2018-01-26] MEDS ORDERED: LOPERAMIDE HCL 2 MG CAP PO PRN (08:50)
[2018-01-26] MEDS ORDERED: PROMETHAZINE HCL 25 MG SUPPR PR PRN (08:50)
[2018-01-26] MEDS ORDERED: PROMETHAZINE HCL 25 MG TAB PO PRN (08:50)
[2018-01-26] MEDS ORDERED: VENLAFAXINE XR 150 MG CAP PO SCH (09:00)
[2018-01-26] MEDS: ATORVASTATIN CALCIUM 20 MG TAB PO SCH (19:20)
[2018-01-27] MEDS: VENLAFAXINE XR 75 MG CAP PO SCH (08:05)
[2018-01-27] MEDS: CLOPIDOGREL BISULFATE 75 MG TAB PO SCH (08:05)
[2018-01-27] MEDS: buPROPion XL 150 MG TAB PO SCH (08:05)
[2018-01-27] MEDS: ASPIRIN EC 325 MG TAB PO SCH (08:08)
--- NOTE | 2018-01-27 08:09 | SOAPPROG ---
SOAP Progress Note Assessment/Plan: Assessment: Major Depressive Disorder, Severe. Cannabis Use Disorder, mild. Slight improvement noted. (see subjective/objective note). Patient is not safe to discharge at this time as patient continues to express and exhibit depression symptoms, and reports plan to overdose on Plavix medications. Patient requires continued inpatient care because of current depression and suicidal ideation, and requires inpatient level of care to stabilize in order to no longer be a danger to himself. Patient could benefit from continued inpatient hospitalization for crisis stabilization, safety, and medication evaluation. Patient could benefit from observation for efficacy and toleration of trial of antidepressant, medication change, and opiate withdrawal. Patient has been hospitalized several times recently, and could benefit from continued hospitalization to ensure stabilization and safe discharge plan to reduce likelihood of decompensation and rehospitalization. Plan: (1) Psychotropic medications: After reviewing options, risks, and benefits patient agrees to continue current medications, and agrees to lower Oxycodone to 10 mg po QD with discontinuing after this AM dose. No medication changes at this time as more time is needed to determine ongoing tolerability and efficacy. Plan is to continue to observe patient for response and side effects from medications, and ongoing monitoring and evaluation. Continue opiate withdrawal protocol for close observation during Oxycodone taper for safety. (2) Review with patient informed consent and recommendations for psychotropic medication treatment listed below (3) Labs: no additional labs at this time (4) Therapy: continue milieu and group therapy (5) Further investigation including gathering information from patients relatives and review of past case records to inform treatment plan. (6) Safety/Wellness plan and follow-up outpatient appointments to be established prior to discharge. Next steps are for patient to meet with health care liaison to plan a safe discharge plan and establish outpatient services for ongoing treatment. (7) Confer with inpatient treatment team regarding treatment plan. (8) Legal status: voluntary (9) Consider discharge Tuesday if patient is in stable condition, safe, and has a safe discharge plan. (10) Substance abuse intervention: cannabis PSYCHOTROPIC MEDICATION TREATMENT INFORMED CONSENT and RECOMMENDATIONS: Review nature of condition, diagnosis, and prognosis. Review nature and purpose of psychotropic medication treatment. Review type of psychotropic medications being ordered. Review risk and benefits of psychotropic medication treatment. Review probable length of time patient will need to take medications. Review risk and benefits of not undergoing psychotropic medication treatment. Review alternative treatments to psychotropic medications. Review psychotropic medications contraindications, drug-drug interactions, side effects, and importance of reporting any side effects to a psychiatric provider or nurse during inpatient hospitalization, and upon discharge to patients psychiatric outpatient provider, primary care provider, or other health chronic care nurse. Review importance of asking a nurse, psychiatric provider, or primary care provider any questions or problems concerning the psychotropic medications. Verify patient understands the information that has been provided, and understands, accepts, and agrees to psychotropic medications. Review patients safety plan and importance of patient to report to staff while hospitalized if patient is ever a danger to self/others, or unable to care for self, and upon discharge, the importance for patient to contact [facility] or [facility], or go to the nearest emergency room, if patient is ever a danger to self/others, or unable to care for self. Recommend that upon discharge patient establish medication management treatment with a psychiatric provider, establishes routine therapy appointments, and follow-up with primary care provider. Verify patient understands and agrees to these recommendations. 01/27/18 08:09 Subjective: Following up with patient for evaluation of depression, anxiety, and safety. Patient reports, "Feeling better, not having any withdrawal symptoms. Can we go faster on taking me off the pain med? I would like to be off of it before discharging. I am feeling better, not having suicidal thoughts as much, and feeling less depressed." Patient expresses the following psychiatric symptoms moderate depression. Patient reports taking medications as prescribed, and describes response to medications as fair. Patient does not report undesirable side effects from the medications, and agrees to continue current medications. Patient reports appetite as good, and reports eating all meals. Patient describes getting 8 hours of sleep. Patient expresses willingness to taper and discontinue Oxycodone sooner, and agrees to Oxycodone 10 mg po QD today and discontinue after daily dose. Agrees to continue Effexor XR taper and trial of Wellbutrin 150 mg po QD. Patient agrees to continue hospitalization over the weekend for observation and monitoring for efficacy and toleration of medication changes. Objective: Vital Signs Temp Pulse Resp BP Pulse Ox 36.9 C 72 16 114/85 H 97 01/27/18 06:00 01/27/18 06:00 01/27/18 06:00 01/27/18 06:00 01/27/18 06:00 NURSING REPORT: Consulted with nursing for update on patients progress in treatment. Nurses report patient is engaged in treatment, is attending groups, slept 9 hours, expresses the following psychiatric symptoms: moderate depression , exhibits the following psychiatric symptoms: flat affect, depressed; is eating all meals, is agreeable to medications and taking as prescribed with no report of side effects, with no s/s of EPS/akathisia, and denies SI/HI, denies A /V hallucinations, and denies delusions. MSE: The patient presents casually dressed and with good hygiene, and looks stated age. Patient is sitting, posture is upright, and position is relaxed. Patient appears awake, alert, and responds appropriately and reasonably during interview. Patient is engaged, relates well to interviewer, and emotional facial expression is appropriate to situation and changes appropriately with topic. Patient is cooperative, makes comfortable eye contact, and movements are voluntary, deliberate, coordinated, and smooth and even with no inappropriate movements. Patient makes laryngeal sounds effortlessly and shares conversation appropriately; pace of conversation is appropriate, and stream of talking is fluent; articulation is clear and understandable; word choice is effortless and appropriate for education level; completes sentences, occasionally pausing to think; rate and volume are appropriate for interview and setting. Patient reports mood as severely depressed. Patients affect is flat, congruent with mood, and appropriate to speech and circumstances. Patient has linear and logical thinking, with no loose associations, tangential thought, thought blocking, concrete thinking, or any other signs of formal thought disorder. Patient reports suicidal ideation, reports no plan, and describes suicidal thoughts have decreased in frequency and severity. Patient denies homicidal ideation, and denies hallucinations and delusions. Patient appears to be a poor historian with poor judgement and poor insight into current condition. Patient has no apparent dysfunction in recent or remote memory noted, and no evidence of gross cognitive dysfunction noted at any point during the interview SUBSTANCE ABUSE BRIEF INTERVENTION: Brief intervention regarding the risks of cannabis abuse is provided to patient with goal to reduce the risk of harm that could result from the continued use of cannabis, with the general aim to investigate the problem, raise awareness of problem, develop a solution with the patient, recommend a specific change or activity, and motivate the patient toward change. Assess substance abuse behavior and give supportive advice about harm reduction, recommend a reduction in hazardous/at-risk consumption patterns, and facilitate referrals for additional specialized treatment with home care music therapist. Intermediate goal is for the patient to quit cannabis use and engage in outpatient substance abuse treatment. Intervention focus on intermediate goals to allow for more immediate success in the treatment process to keep the patient motivated. Review following with patient: Cannabis use risks: Short-term use: impaired short-term memory, impaired motor coordination, altered judgement, in high doses paranoia and psychosis. Long-term use addiction, diminished life satisfaction and achievement, symptoms of chronic bronchitis, and increased risk of chronic psychosis disorders if predisposition to such disorders. In withdrawal anger, aggression irritability, anxiety and nervousness, decreased appetite or weight loss, restlessness, and sleep difficulties with strange dreams. - Time Spent With Patient Time Spent With Patient: 15 minutes, met with patient individually. - Pending Discharge Pending Discharge Within 24 Hours: No Pending Discharge Within 48 Hours: No ICD10 Worksheet Patient Problems: Problems Problem Status Onset Severe major depression Acute Suicidal ideation Acute
--- NOTE | 2018-01-27 09:20 | CPEKG ---
Test Reason : OPEN Blood Pressure : / mmHG Vent. Rate : 067 BPM Atrial Rate : 067 BPM P-R Int : 192 ms QRS Dur : 106 ms QT Int : 400 ms P-R-T Axes : 031 012 045 degrees QTc Int : 423 ms SINUS RHYTHM Confirmed by Fernando Borden [id number]) on 01/27/2018 9:20:38 AM Referred By: Confirmed By:Fernando Borden
--- NOTE | 2018-01-27 12:44 | ASMTCMCOM ---
CM Note CM Note Notes: Pt. reports "don't feel too good. Feel weak". Pt. stated he believes this is because he is coming off his pain medication too quickly. Pt. stated he is frustrated the doctor changed the way he is titrating him off his medication. Pt reports sleeping "not good". Pt. reports he is eating well and has attended all of the groups. Pt. stated he may return home to [place]. Pt. stated he will know tomorrow if he will be able to afford a bus ticket to [place]. Pt. stated he has an appointment with his provider on 02/07 at 10:00am [facility]. Pt. stated his medication change has affected his appetite Pt. denied SI, HI, AVH and paranoia. Pt. presents as alert, fidgety, a bit guarded, fair eye contact and with a friendly demeanor. Staff report pt. sleeping 8 hours and being medication compliant. Date Signed: 01/27/2018 12:43 PM Electronically Signed By:Carmen Franco
[2018-01-27] MEDS: LORazepam 0.5 MG TAB PO PRN (17:56)
[2018-01-27] MEDS: ATORVASTATIN CALCIUM 20 MG TAB PO SCH (19:40)
[2018-01-27] MEDS ORDERED: oxyCODONE IR 5 MG TAB PO SCH (21:00)
[2018-01-28] MEDS: LORazepam 0.5 MG TAB PO PRN ×3 (01:44→15:32)
[2018-01-28] MEDS: buPROPion XL 150 MG TAB PO SCH (08:04)
[2018-01-28] MEDS: VENLAFAXINE XR 75 MG CAP PO SCH (08:04)
[2018-01-28] MEDS: CLOPIDOGREL BISULFATE 75 MG TAB PO SCH (08:04)
[2018-01-28] MEDS: ASPIRIN EC 325 MG TAB PO SCH (08:14)
--- NOTE | 2018-01-28 15:29 | ASMTCMCOM ---
CM Note CM Note Notes: Pt. reports being "less nervous today". Pt. stated he slept "little better". Pt. reports he has been able to eat a bit more today. Pt. reports no issues with his current medications. Pt. stated he believes he is discharging on Tuesday and feels "alright" about it. 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 Pt. 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 Pt. stated he feels he can go right back to work upon discharge. Pt. stated he needs help getting to [place] and asked if the hospital could help. Pt. stated he does have an appointment with his psychiatrist schedule for the end of the month. Pt. denied SI, HI, AVH and paranoia. Pt. presents as alert, less anxious compared to yesterday, good eye contact and with a mostly pleasant demeanor. Staff report pt. sleeping 8.5 hours and being medication complaint. Date Signed: 01/28/2018 03:29 PM Electronically Signed By:Carmen Franco
--- NOTE | 2018-01-28 18:05 | SOAPPROG ---
SOAP Progress Note Assessment/Plan: Assessment: Per Himanshu Smith's note: Assessment: Major Depressive Disorder, Severe. Cannabis Use Disorder, mild. Slight improvement noted. (see subjective/objective note). Patient is not safe to discharge at this time as patient continues to express and exhibit depression symptoms, and reports plan to overdose on Plavix medications. Patient requires continued inpatient care because of current depression and suicidal ideation, and requires inpatient level of care to stabilize in order to no longer be a danger to himself. Patient could benefit from continued inpatient hospitalization for crisis stabilization, safety, and medication evaluation. Patient could benefit from observation for efficacy and toleration of trial of antidepressant, medication change, and opiate withdrawal. Patient has been hospitalized several times recently, and could benefit from continued hospitalization to ensure stabilization and safe discharge plan to reduce likelihood of decompensation and rehospitalization. Plan: 01/28/18 18:00 1. Patient c/o some mild nausea this afternoon, some diaphoresis and elevated BP. However, he admits he is anxious about discharge and not having a way to get pain meds until he returns to [place]. Patient also told MD that he doesn't want to be tapered off opioids until he has found something to replace them that is effective at controlling his pain. MD asked if patient had considered replacement therapy with suboxone or methadone. Patient states he is willing to find suboxone prescriber once he returns to [place]. Patient told MD that he was taking oxycontin 40mg BID "the day before" he came to [facility]. However, MD checked records and discovered patient had been tapered down to 10mg TID at [facility] ([place], [place]) and was only given several days worth of opioids and expected to reduce dose to 10mg BID after d/c. He presented to [facility] on 01/25/18 basically when prescription ran out. MD is concerned that patient did not tell truth about his chain of events when asked about his most recent dose. MD agreed to keep current dose at 10mg BID which is what he was taking prior to admission. He denies any w/d sxs when MD talked to him this afternoon. Will d/c C[facility] since he is on standing dose of opiates equal to what he has used for at least the past 5 days (since d/ c from on 01/23/18). 2. Patient plans to return to [place] after d/c and will f/u with providers there to manage his pain. 3. Anticipate d/c on Tuesday. Subjective: Patient c/o some mild nausea this afternoon, some diaphoresis and elevated BP. However, he admits he is anxious about discharge and not having a way to get pain meds until he returns to [place]. Patient also told MD that he doesn't want to be tapered off opioids until he has found something to replace them that is effective at controlling his pain. MD asked if patient had considered replacement therapy with suboxone or methadone. Patient states he is willing to find suboxone prescriber once he returns to [place]. Patient told MD that he was taking oxycontin 40mg BID "the day before" he came to . However, MD checked records and discovered patient had been tapered down to 10mg TID at [facility] ([place], [place]) and was only given several days worth of opioids and expected to reduce dose to 10mg BID after d/c. He presented to [facility] on 01/25/18 basically when prescription ran out. MD is concerned that patient did not tell truth about his chain of events when asked about his most recent dose. MD agreed to keep current dose at 10mg BID which is what he was taking prior to admission. He denies any w/d sxs when MD talked to him this afternoon. Will d/c [facility] since he is on standing dose of opiates equal to what he has used for at least the past 5 days (since d/ c from on 01/23/18). Patient plans to return to [place] after d/c and will f/u with providers there to manage his pain. Patient denies any SI/HI. Objective: Vital Signs Temp Pulse Resp BP Pulse Ox 37.6 C 88 12 126/83 H 95 01/28/18 15:05 01/28/18 15:05 01/28/18 15:05 01/28/18 15:05 01/28/18 15:05 MSE: Affect: Flat Mood: "OK" TP: Linear TC: Denies any SI/HI Insight/Judgment : Poor - Time Spent With Patient Time Spent With Patient: 15" - Pending Discharge Pending Discharge Within 24 Hours: No Pending Discharge Within 48 Hours: Yes Pending Discharge Date: 01/30/18 (Likely d/c on Tuesday) Pending Discharge Time: 11:00 ICD10 Worksheet Patient Problems: Problems Problem Status Onset Severe major depression Acute Suicidal ideation Acute
[2018-01-28] MEDS: ATORVASTATIN CALCIUM 20 MG TAB PO SCH (19:29)
[2018-01-29] MEDS: LORazepam 0.5 MG TAB PO PRN ×3 (01:41→16:12)
[2018-01-29] MEDS: buPROPion XL 150 MG TAB PO SCH (08:05)
[2018-01-29] MEDS: CLOPIDOGREL BISULFATE 75 MG TAB PO SCH (08:05)
[2018-01-29] MEDS: VENLAFAXINE XR 75 MG CAP PO SCH (08:05)
[2018-01-29] MEDS: ASPIRIN EC 325 MG TAB PO SCH (08:16)
--- NOTE | 2018-01-29 15:12 | ASMTBHDC ---
Notes Note: Notes: Pt. reports "don't feel good", adding he felt nauseous tired and weak. Pt. stated he wasn't able to eat this morning. Pt. stated he slept "not too good, up and down all night". Pt. asked if the hospital could help with a bus ticket, CC explained the endowment process. Pt. 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 Pt. 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 Pt. denied SI, Hi, AVH and paranoia. Pt. presents as alert, nervous, polite, good eye contact and a mostly pleasant demeanor. Staff report pt. sleeping 8 hours and being medication compliant. Date Signed: 01/29/2018 03:12 PM Electronically Signed By:Carmen Franco
--- NOTE | 2018-01-29 19:22 | SOAPPROG ---
SOAP Progress Note Assessment/Plan: Assessment: Per Himanshu Smith's note: Assessment: Major Depressive Disorder, Severe. Cannabis Use Disorder, mild. Slight improvement noted. (see subjective/objective note). Patient is not safe to discharge at this time as patient continues to express and exhibit depression symptoms, and reports plan to overdose on Plavix medications. Patient requires continued inpatient care because of current depression and suicidal ideation, and requires inpatient level of care to stabilize in order to no longer be a danger to himself. Patient could benefit from continued inpatient hospitalization for crisis stabilization, safety, and medication evaluation. Patient could benefit from observation for efficacy and toleration of trial of antidepressant, medication change, and opiate withdrawal. Patient has been hospitalized several times recently, and could benefit from continued hospitalization to ensure stabilization and safe discharge plan to reduce likelihood of decompensation and rehospitalization. Plan: 01/28/18 18:00 1. Patient c/o some mild nausea this afternoon, some diaphoresis and elevated BP. However, he admits he is anxious about discharge and not having a way to get pain meds until he returns to [place]. Patient also told MD that he doesn't want to be tapered off opioids until he has found something to replace them that is effective at controlling his pain. MD asked if patient had considered replacement therapy with suboxone or methadone. Patient states he is willing to find suboxone prescriber once he returns to [place]. Patient told MD that he was taking oxycontin 40mg BID "the day before" he came to [facility]. However, MD checked records and discovered patient had been tapered down to 10mg TID at [facility] and was only given several days worth of opioids and expected to reduce dose to 10mg BID after d/c. He presented to [facility] on 01/25/18 basically when prescription ran out. MD is concerned that patient did not tell truth about his chain of events when asked about his most recent dose. MD agreed to keep current dose at 10mg BID which is what he was taking prior to admission. He denies any w/d sxs when MD talked to him this afternoon. Will d/c [facility] since he is on standing dose of opiates equal to what he has used for at least the past 5 days (since d/ c from on 01/23/18). 2. Patient plans to return to [place] after d/c and will f/u with providers there to manage his pain. 3. Anticipate d/c on Tuesday. 01/29/18 19:17 1. Patient denies any s/s of opiate w/d. He feels "tired" and c/o little bit of nausea, but no vomiting. 2. D/C [facility] 3. Maintain scheduled pain meds, oxycontin 10mg BID. MD encouraged patient to find suboxone provider and start replacement therapy if he remains in [place]. However, patient says he would prefer to find pain specialist in [place] once he returns home. MD advised patient that he may not be able to find any outpatient providers in [place] who will continue him on opiate pain meds. If that happens, patient will be forced into withdrawal which could be very uncomfortable. Patient has recent h/o going to [facility] for SI and getting put back on pain meds when his Rx runs out. MD advised this is not a good strategy for dealing with chronic pain or opiate dependence. MD advised patient to enter detox/rehab if he wants to quit opiates completely. If not, he needs to find prescriber who will start replacement therapy [place]. Patient verbalizes his understanding. 4. Anticipate d/c on Tuesday. 5. Patient reports no SE's from switching from Effexor to Wellbutrin. MD recommends patient continue on current doses and have meds further adjusted once he establishes care with an outpatient provider either in [place] or in [place] ( depending on how soon he returns home). Subjective: Patient denies any more w/d sxs since yesterday. He felt a little nauseous this AM, but denies N/V this afternoon. He was watching TV with peers this afternoon , denied any physical complaints and MD observed patient was not in any apparent distress. He reports sleep and appetite are both "good." He denies any SI/HI. Objective: Vital Signs Temp Pulse Resp BP Pulse Ox 36.9 C 72 16 110/70 96 01/29/18 06:00 01/29/18 06:00 01/29/18 06:00 01/29/18 06:00 01/29/18 06:00 MSE: Affect: Euthymic Mood: "OK" TP: Linear TC: Denies any SI/HI Insight/ Judgment: Poor - Time Spent With Patient Time Spent With Patient: 15" - Pending Discharge Pending Discharge Within 24 Hours: Yes Pending Discharge Date: 01/30/18 (Possible d/c on Tuesday) Pending Discharge Time: 11:00 ICD10 Worksheet Patient Problems: Problems Problem Status Onset Severe major depression Acute Suicidal ideation Acute
[2018-01-29] MEDS: ATORVASTATIN CALCIUM 20 MG TAB PO SCH (19:38)
[2018-01-30 07:09] VITALS: BP 125/78
[2018-01-30] MEDS ORDERED: VENLAFAXINE XR 37.5 MG CAP PO SCH (07:25)
[2018-01-30] MEDS: CLOPIDOGREL BISULFATE 75 MG TAB PO SCH (08:06)
[2018-01-30] MEDS: buPROPion XL 150 MG TAB PO SCH (08:06)
--- NOTE | 2018-01-30 09:13 | BDS ---
REASON FOR ADMISSION: From the ED note dated 01/24/2018, the patient presented to the ED in a private vehicle with complaints of depression and feeling suicidal. The patient reported increasing thoughts of self-harm with plans of overdosing on his current medications. The patient was admitted involuntarily on an M1 hold due to being a danger to himself. The patient was admitted for safety, crisis stabilization and medication management. ADMITTING DIAGNOSES: 1. Major depressive disorder, severe. 2. Cannabis use disorder, severe. 3. Opiate dependence ADMISSION PHYSICAL EXAM: The patient was seen by Dr. Burt on 01/25/2018, for an internal medicine consultation for medical clearance for inpatient Behavioral Health stay. Dr. Burt reported he saw no medical contraindications to the patient's continued stay on the inpatient behavioral health unit or to any psychiatric medications or procedures. For further details, please refer to Internal Medicine consultation note dated 01/25/2018. ADMISSION LABS: CBC revealed mild anemia with hemoglobin of 11.7 and hematocrit of 35.2. He had a normal MCV. Serum chemistry revealed normal renal function and electrolytes. Hemoglobin A1c was normal at 5.6. Lipid panel reflected excellent control of dyslipidemia with total cholesterol of 104 , LDL of 48, and an HDL of 35. TSH was normal at 0.689. Toxicology screen in the serum was negative for ethyl alcohol and in the urine was non-negative for marijuana, was negative for all other substances tested. MAJOR PROCEDURES OR TESTS: None. HOSPITAL COURSE: The most prominent symptoms and behaviors while the patient was here were the patient's reports of severe depression. Treatment modalities utilized were milieu and group therapy. Effexor XR 150 mg p.o. daily was tapered to 75 mg p.o. daily for a taper to discontinue. This change was tolerated with no report of side effects and with good response. Wellbutrin XL 150 mg p.o. daily was started to target depression symptoms, was tolerated with no report of side effects and with good response. The patient also was started on oxycodone 10 mg p.o. t.i.d. at time of admission. During the patient's hospitalization, the patient was tapered to 10 mg p.o. twice daily. This dose was tolerated with no report of side effects and with good response. The patient was tapered to 10 mg daily on 01/27/2018. However, patient reported complaints of opiate withdrawal including nausea, vomiting, sweating, and increased pain. The medication was increased back to 10 mg p.o. twice daily and was tolerated with no report of side effects and with good response. At time of discharge, the patient reported his desire to continue to taper to eventually discontinue from oxycodone and at time of discharge, patient requested a taper of 5 days at 10 mg p.o. daily. A prescription was written at time of discharge for six 10 mg tablets and patient was given directions to take one 10 mg tablet at bedtime tonight and then begin the 5 day taper at 10 mg p.o. daily. The patient reports he has improved since admission. States to be in stable condition. Feels safe to discharge and he contracts for safety. Patient's response to treatment was good. There were no adverse or unexpected results of treatment. The patient was safe throughout his stay, active in treatment, engaged in groups, and was appropriate with staff and other patients. The patient met with this [employer] SERVICE TECHNICIAN, urgent care nurse practitioner and nursing prior to discharge to assess readiness to discharge and reviewed discharge plan. The treatment team consensus is the patient is in stable condition, has a safe discharge plan and is ready to discharge today. CONDITION AT DISCHARGE: Patient is in stable condition and is no longer a danger to self or others, and is not gravely disabled due to mental illness. Patient is no longer in need of inpatient level of care, and can be safely and effectively treated within the community. The patients level of risk at time of discharge is low. MSE: The patient is casually dressed and with good hygiene , and looks stated age. Patient is sitting, posture is upright, and position is relaxed. Patient appears awake, alert, and responds appropriately and reasonably during interview. Patient is engaged, relates well to interviewer, and emotional facial expression is appropriate to situation and changes appropriately with topic. Patient is cooperative, makes comfortable eye contact , and movements are voluntary, deliberate, coordinated, and smooth and even with no inappropriate movements. Patient makes laryngeal sounds effortlessly and shares conversation appropriately; pace of conversation is appropriate, and stream of talking is fluent; articulation is clear and understandable; word choice is effortless and appropriate for education level; completes sentences, occasionally pausing to think; rate and volume are appropriate for interview and setting. Patient reports mood as euthymic. Patients affect is stable with full variable range, congruent with mood, and appropriate to speech and circumstances. Patient has linear and logical thinking, with no loose associations, tangential thought, thought blocking, concrete thinking, or any other signs of formal thought disorder. Patient denies suicidal and homicidal ideation, and denies hallucinations and delusions. Patient appears to be a reliable historian with sound judgement and good insight into current condition. Patient has no apparent dysfunction in recent or remote memory noted , and no evidence of gross cognitive dysfunction noted at any point during the interview. DISCHARGE DIAGNOSES: 1. Major depressive disorder, severe. 2. Cannabis use disorder, severe. 3. Opiate dependence CURRENT MEDICATIONS: After reviewing options, risks and benefits, the patient agrees to continue current medications. 1. Wellbutrin 150 mg p.o. daily. 2. Imodium 2 mg to 4 mg p.o. p.r.n. 3. Oxycodone 10 mg p.o. daily for 5 days for a taper to discontinue. 4. Effexor XR 37.5 mg p.o. daily for 6 days for taper to discontinue. 5. The patient is to continue: a. Plavix 75 mg p.o. daily. b. Nitroglycerin 0.4 mg sublingual q.5 minutes p.r.n. c. Metoprolol succinate XR 25 mg p.o. daily. d. Imdur 60 mg p.o. daily. e. Aspirin 325 mg p.o. daily. f. Ranolazine 50 mg p.o. b.i.d. g. Multivitamin 1 daily. h. Lipitor 20 mg p.o. q.h.s. At time of discharge, patient requests prescriptions for Wellbutrin 150 mg p.o. daily. A prescription for 30 days is provided. The patient also request a 5 day taper of oxycodone 10 mg p.o. daily to discontinue after last dose. Provided prescription for six 10 mg tabs of oxycodone at time of discharge. The patient is also provided a prescription of Effexor XR 37.5 mg p.o. daily for taper to discontinue. The prescriptions are reviewed with the patient at time of discharge to ensure accuracy and patient understanding. After discharge patient called unit and reported his insurance would not cover Oxycodone CR RX. This [employer] SERVICE TECHNICIAN walked over to [facility], where patient was attempting to fill RX, and met with patient and pharmacy tech customer service. Patient was provided options at that time based on his insurance coverage and patient agreed to Oxycodone IR 10 mg po QD #6., RX was changed and filled. Patient thanked this [employer] SERVICE TECHNICIAN for assisting in getting RX filled and thanked W[employer] SERVICE TECHNICIAN for arranging transportation for him to travel to [place]. 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 The patient is provided with a bus ticket from [place] to [place] and then is also provided another bus ticket from [place] to [place]. FOLLOWUP: student outreach coordinator reports the appropriate outpatient follow-up services have been established and outpatient appointments have been scheduled. The patient received written instructions with times and dates of outpatient follow-up appointments. The following follow-up recommendations were provided to the patient at discharge: Continue psychotropic medications as prescribed and attend appointments as scheduled. Report any side effects to a psychiatric outpatient provider, a primary care provider, or other health manager intensive care unit. Address any questions or problems concerning the psychotropic medications with a psychiatric outpatient provider, a primary care provider, or other health manager intensive care unit. Contact [facility] or [facility], or go to the nearest emergency room, if you are ever a danger to yourself/others, or unable to care for yourself. As soon as possible, establish a routine medication management treatment with a psychiatric provider, establish routine therapy appointments, and follow-up with a primary care provider. SUBSTANCE ABUSE BRIEF INTERVENTION: Brief intervention regarding the risks of cannabis abuse is provided to patient with goal to reduce the risk of harm that could result from the continued use of cannabis and methamphetamine, with the general aim to investigate the problem, raise awareness of problem, develop a solution with the patient, recommend a specific change or activity, and motivate the patient toward change. Assess substance abuse behavior and give supportive advice about harm reduction, recommend a reduction in hazardous/at- risk consumption patterns, and facilitate referrals for additional specialized treatment with urgent care nurse practitioner. Intermediate goal is for the patient to quit and attend outpatient substance abuse treatment. Intervention focus on intermediate goals to allow for more immediate success in the treatment process to keep the patient motivated. Review following with patient: Cannabis use risks: Short-term use: impaired short-term memory, impaired motor coordination, altered judgement, in high doses paranoia and psychosis. Long-term use addiction, diminished life satisfaction and achievement, symptoms of chronic bronchitis, and increased risk of chronic psychosis disorders if predisposition to such disorders. In withdrawal anger, aggression irritability, anxiety and nervousness, decreased appetite or weight loss, restlessness, and sleep difficulties with strange dreams. OUTPATIENT SUBSTANCE ABUSE TREATMENT: Patient referred to outpatient provider and treatment for continued treatment related to substance abuse. LEGAL COURSE: The patient was admitted on an M1 hold for involuntary inpatient psychiatric hospitalization. Patient became voluntary during his stay and patient discharged today independently and voluntarily. ATTITUDE AT TIME OF DISCHARGE: Patient states, "I think we got these medications figured out, I'm feeling a lot better, no longer as depressed. Also , I am glad to be getting off the pain medication, I do not want to be dependent on them." The patients attitude was positive at time of discharge, and patient reports looking forward to discharging today. The patient reports he feels safe to discharge, is no longer a danger to himself or others, is in stable condition, and contracts for safety. Patient states he will continue medications as prescribed, and establish medication management treatment with an outpatient provider after discharge. Patient reports he understands the information that has been provided to him, and he understands, accepts, and agrees to psychotropic medications. Patient describes internal protective factors as the coping skills he has learned while hospitalized here, and he plans to continue to practice these coping skills after discharge. LABS AND STUDIES: There were no pending labs or studies at time of discharge ADVANCE DIRECTIVES: There were no advance directives on file, and patient was full code during this hospitalization. The following psychotropic medication treatment informed consent and recommendations were provided to the patient at time of discharge. Patient reports he understands, accepts, and agrees to the information that has been provided. PSYCHOTROPIC MEDICATION TREATMENT INFORMED CONSENT and RECOMMENDATIONS: Review nature of condition, diagnosis, and prognosis. Review nature and purpose of psychotropic medication treatment. Review type of psychotropic medications being prescribed. Review risk and benefits of psychotropic medication treatment. Review probable length of time will need to take medications. Review risk and benefits of not undergoing psychotropic medication treatment. Review alternative treatments to psychotropic medications. Review psychotropic medications contraindications, side effects, and importance of reporting any side effects to a psychiatric provider, primary care provider, or other health manager intensive care unit. Review importance of him asking a psychiatric provider or primary care provider any questions or problems concerning the psychotropic medications. Review safety plan and the importance to contact [facility] or [facility] , or go to the nearest emergency room, if ever a danger to yourself/others, or unable to care for yourself. Recommend upon discharge to establish routine medication management treatment with a psychiatric provider, establish routine therapy appointments, and follow-up with a primary care provider. Verify patient understands, accepts, and agrees to the information that has been provided. /[id number]/MODL MTDD
== END 2018-01-30 08:18 | disposition home or self-care (01) | DRG 885 ==
LOC: BBEH 01-25 00:23
PROVIDERS: ADMIT Psychiatry & Neurology Behavioral Neurology & Neuropsychiatry; ATTEND Psychiatry & Neurology Behavioral Neurology & Neuropsychiatry
DX: F33.2 Major depressive disorder, recurrent severe without psychotic features (principal); F11.20 Opioid dependence, uncomplicated; D64.9 Anemia, unspecified; I10 Essential (primary) hypertension; Z95.5 Presence of coronary angioplasty implant and graft; Z95.1 Presence of aortocoronary bypass graft; E78.5 Hyperlipidemia, unspecified
CPT/HCPCS: 80305; G0480